=== PATIENT | male | born 1975 | race African-American/Black ===

== ENCOUNTER 2019-10-01 19:58 | Emergency (ER) | payer OTHER ==
[2019-10-01] MEDS ORDERED: FLU Vacc QS2019-20(6MOS+)/PF 60 MCG/0.5 ML SYRINGE IM ONE (20:30)
--- NOTE | 2019-10-01 20:57 | EDM.PDOC ---
ED HPI GENERAL MEDICAL PROBLEM - General Chief Complaint: Exposure to Heat or Cold Stated Complaint: [facility] Time Seen by Provider: 10/01/19 20:14 Source of Information: Reports: Patient, RN Notes Reviewed History Limitations: Reports: No Limitations - History of Present Illness INITIAL COMMENTS - FREE TEXT/NARRATIVE: Patient is a 44-year-old male who presents to the ED via ambulance service for the evaluation of a frostbitten ear. The patient notes that he was working outside today, and he states that he had his ears covered with a beanie and a hoodie, but he states he was working outside for around 8 hours today. He states however that they did have multiple breaks. The patient has multiple blisters on the auricle of the right ear, some are intact, some are open and weeping. This does not extend to the lobe, but is on most of the auricle. There is no further trauma noted further into the ear canal. Patient states that he still is able to feel the ear, it is not numb. Right Ear Pain Score (Numeric/FACES): 1 - Related Data Allergies Allergy/AdvReac Type Severity Reaction Status Date / Time No Known Allergies Allergy Verified 10/01/19 20:03 Home Meds: Home Meds . [No Known Home Meds] 10/01/19 [History] Past Medical History Musculoskeletal History: Reports: Fracture Dermatologic History: Reports: Eczema, Other (See Below) Other Dermatologic History: alopecia - Past Surgical History Musculoskeletal Surgical History: Reports: Other (See Below) Other Musculoskeletal Surgeries/Procedures:: pins in rods in knee and hip Social & Family History - Family History Family Medical History: Noncontributory - Tobacco Use Smoking Status *Q: Never Smoker - Caffeine Use Caffeine Use: Reports: Coffee, Soda, Tea - Recreational Drug Use Recreational Drug Use: No ED ROS GENERAL - Review of Systems Review Of Systems: Comprehensive ROS is negative, except as noted in HPI. HEENT: Reports: Ear Pain (cintron bite/nip to R auricle). Denies: Hearing Loss Skin: Reports: Wound (Frostbite/nip to R ear auricle) ED EXAM, GENERAL - Physical Exam Exam: See Below Exam Limited By: No Limitations General Appearance: Alert, WD/WN, No Apparent Distress Eye Exam: Bilateral Eye: EOMI, Normal Inspection, PERRL Ears: Normal External Exam (of Left ear), Normal Canal, Hearing Grossly Normal, Normal TMs Ear Exam: Right Ear: Other (Right auricle has several blisters that are intact, and several that are weeping, and are open. Patient states there is not a lot of pain to the area, he states he can feel his ear.) Throat/Mouth: Normal Inspection, Normal Lips, Normal Teeth, Normal Gums, Normal Oropharynx, Normal Voice, No Airway Compromise Head: Atraumatic, Normocephalic Neck: Normal Inspection Respiratory/Chest: No Respiratory Distress, Lungs Clear, Normal Breath Sounds, No Accessory Muscle Use, Chest Non-Tender Cardiovascular: Normal Peripheral Pulses, Regular Rate, Rhythm, No Murmur Peripheral Pulses: 3+: Radial (L), Radial (R) Extremities: Normal Inspection, Normal Capillary Refill Neurological: Alert, Oriented, Normal Cognition, No Motor/Sensory Deficits Psychiatric: Normal Affect, Normal Mood Skin Exam: Warm, Dry, Intact, Normal Color, No Rash Course - Vital Signs Last Recorded V/S: Last Vital Signs Temp 98.1 F 10/01/19 19:58 Pulse 87 10/01/19 19:58 Resp 20 10/01/19 19:58 BP 132/99 H 10/01/19 19:58 Pulse Ox 93 L 10/01/19 19:58 - Orders/Labs/Meds Orders: Active Orders 24 hr Category Date Time Status Influenza Vaccine Charge [RC] .DISCHARGE Care 10/01/19 20:08 Active Meds: Medications Discontinued Medications Generic Name Dose Route Start Last Admin Trade Name Freq PRN Reason Stop Dose Admin Influenza Virus Vaccine 1 each 10/01/19 20:08 Pharmacy To Dose - Influenza Vaccine IM 10/01/19 20:09 ONETIME ONE Influenza Virus Vaccine 60 mcg 10/01/19 20:30 10/01/19 20:48 Fluzone Quad [id number] Syringe IM 10/01/19 20:31 60 mcg .ONCE ONE Administration - Re-Assessments/Exams Free Text/Narrative Re-Assessment/Exam: 10/01/19 20:58 Patient presents to the ED for a frostbite/frostnip of his right ear. The patient's wounds will be dressed with bacitracin, and will be bandaged appropriately, he will be educated on how to apply the bacitracin and bandaging , 2 times daily for the next 3 to 5 days. He should have this ear looked at again, within 1 week's time for reevaluation. Patient will be given a note to have off 1 week from work, until he can get his ear rechecked by a provider. I did make it known to him that this particular area the air does not have a lot of blood flow, so he should be on heightened alert for any signs of infection. Patient verbalized understanding at this time. He will be given some tablets of pain medication for suspected pain over the next couple days. Departure - Departure Time of Disposition: 20:59 Disposition: Home, Self-Care 01 Condition: Fair Clinical Impression: Frostbite of ear Qualifiers: Encounter type: initial encounter Laterality: right Qualified Code(s): T33.011A - Superficial frostbite of right ear, initial encounter - Discharge Information *PRESCRIPTION DRUG MONITORING PROGRAM REVIEWED*: Yes *COPY OF PRESCRIPTION DRUG MONITORING REPORT IN PATIENT GEOVANNA: No Instructions: Frostbite, [id number] Referrals: PCP,Unknown [Primary Care Provider] - Forms: ED Department Discharge, ED Return to Work/School Form Additional Instructions: You were evaluated in the ER today regarding Frostbite involving your right ear. Management of this is how you would treat a burn, please apply bacitracin to the area 2 times daily over the next 3 to 5 days, you may keep the area covered with nonadherent gauze bandages. There are blisters intact, do not rupture the blisters as they will rupture by themselves. Please keep on heightened alert for any signs of infection, to include redness, swelling, increased pain. The top portion of the ear it does not have great circulation, so it is an area that is more prone to infection. Recommend you have your ear and wounds rechecked within 1 week's time. You may go to any clinic to have your wounds rechecked and to make sure they are healing as expected. You were given a few tablets of pain medication for pain not relieved by ibuprofen or Tylenol alone. Please take these tablets sparingly, and only do so if you are not getting adequate pain control from Tylenol or ibuprofen. You may take 500 mg Tylenol or 600 mg ibuprofen every 6 hours, do not exceed 4000 mg Tylenol or 3200 mg ibuprofen in a 24-hour time span. Please note that the stronger pain medications do contain extra Tylenol in them, so be aware of how much Tylenol you are taking in a 24-hour time span. The stronger pain medications can also cause some constipation, so please start taking a stool softener like MiraLAX if you are using the stronger pain medications for pain relief. Please return to the ER at any time however if your symptoms change or worsen. Sepsis Event Note - Evaluation Sepsis Screening Result: No Definite Risk - Focused Exam Vital Signs: Vital Signs Temp Pulse Resp BP Pulse Ox 10/01/19 19:58 98.1 F 87 20 132/99 H 93 L Date Exam was Performed: 10/01/19 Time Exam was Performed: 20:52 - My Orders Last 24 Hours: My Active Orders 10/01/19 20:08 Influenza Vaccine Charge [RC] .DISCHARGE - Assessment/Plan Last 24 Hours: My Active Orders 10/01/19 20:08 Influenza Vaccine Charge [RC] .DISCHARGE
== END 2019-10-01 21:19 | disposition home or self-care (01) ==
LOC: JD.ED 19:58
DX: T33.011A Superficial frostbite of right ear, initial encounter (principal); Z23 Encounter for immunization; X31.XXXA Exposure to excessive natural cold, initial encounter
CPT/HCPCS: 90686; 99282; 99283-25; G0008